=== PATIENT | female | born 1985 | race Caucasian/White ===

== ENCOUNTER 2019-07-21 06:37 | Inpatient (IN) | payer OTHER ==
[~2019-07-21] VITALS: Ht 154.9 cm; Wt 81.4 kg
[2019-07-23] VITALS (46 sets, daily range): BP systolic 108–152; BP diastolic 57–110; PULSE 67–115; TEMP 98–98.7
--- NOTE | 2019-07-23 07:15 | NUR ---
Patient ambulatory to [facility]5 with spouse, changed into gown, FHR/TOCO monitors placed. Patient denies any regular contractions, leaking of fluid, vaginal bleeding, decreased movement. Plan of care discussed. 0740: IV started in right hand, blood obtained and to lab, LR infusing. Assessment completed/consents gone over and signed/ packet given. Dr. Fay called and orders to start pitocin. 0800: Pitocin induction discussed and patient agrees to plan, pitocin started per protocol at 2mU. 0815: Dr. Fay at bedside and plan of care discussed. SONO done at this time and vertex position confirmed.
[2019-07-23] MEDS ORDERED: PRENATAL TABLET PO (07:43)
[2019-07-23 08:40] LABS: BASO % 0.3 % (0.0-2.0); EOS # 0.1 (0.0-0.7); EOS % 0.7 % (0-4.0); GRAN # 5.7 (1.4-6.5); GRAN % 74.6 % (42.2-75.2); HEMOGLOBIN 13.1 g/dl (12.5-16.0); LYMPH # 1.4 (1.2-3.4); LYMPH % 17.8 % (20.0-51.0); MEAN CELL VOLUME 90 fl (80.0-100.0); MEAN CORPUSCULAR HEMOGLOBIN 30 pg (27.0-31.0); MEAN CORPUSCULAR HGB CONC 34 g/dl (33.0-37.0); MEAN PLATELET VOLUME 10.5 fl (7.4-10.4); MONO # 0.4 (0.1-0.6); MONO % 5.8 % (1.7-9.3); PLATELET COUNT 210 K/mm3 (130-400); RED BLOOD COUNT 4.32 M/mm3 (4.10-5.30); REDCELL DISTRIBUTION WIDTH-CV 13.6 % (11.5-14.5)
--- NOTE | 2019-07-23 10:54 | NUR ---
Patient sitting forward and FHR tracing maternal heart rate due to maternal position. 1115: FHR tracing intermittent varianle decelerations.
--- NOTE | 2019-07-23 12:00 | NUR ---
FHR monitor intermittently tracing maternal heart rate and monitor adjusted. 1410: Patient off monitor to void. 1453: FHR tracing maternal heart rate and monitor adjusted. 1526: FHR tracing maternal heart rate due to patient sitting forward. 1610: Patient more uncomfortable and requesting epidural. SVE-/-2 Luciano HILARIO notified. 1630: FHR baseline 145-150bpm and recurrent late decelerations decreasing to 90-120bpm and returning to baseline. Patient turned left lateral. 1640: Patient off monitor to void. Dr. Fay at bedside and assessing patient and FHR monitor and orders to turn pitocin down to 10mU. 1643: Pitocin turned down to 10mU. Physician orders to turn pitocin off. 1652: Pitocin off and patient sitting up for epidural and Abhay Allen CRNA at bedside. Difficulty tracing FHR due to maternal position. 1710: Patient more comfortable with epidural and Dr. Fay at bedside. SVE-/2 1725: FHR tracing recurrent late/varible deceleration. Dr. Fay at bedside. Oxygen on patient via mask at 10ml/hr. Plan of care discussed SVE per physician /2 and IUPC placed at this time and patient tolerates well. Patient right lateral. 1745: Osorio catheter placed and patient tolerates well. SVE--//-2. Patient left lateral with right leg resting in stirrup. 1750: FHR baseline 155bpm and subtle late decelerations noted. at nurses station and orders to turn pitocon on at 2mU. Pitocin turned on at this time 1758: IUPC removed due to not recording correctly. 1815: Report given to Randell Russo
--- NOTE | 2019-07-23 20:16 | NUR ---
185 DR MAE DID SVE PT IS COMPLETE, GOING TO START PUSHING, 185 RICH CATHETER REMOVED WITH 100 ML OF URINE IN IT. 1899 DR MAE AT BEDSIDE TO PUSH, VO RECIEVED TO INCREASE THE PITOCIN DRIP TO 4MU/HR. 190 OF FEMALE INFANT OVER INTACT COY AREA, APGARS 8-9-9, SPONTANOUS DELIVERY OF PLACENTA, PITOCIN INFUSING AT 350ML/HR FF.
[2019-07-24 08:25] LABS: HEMOGLOBIN 11.5 g/dl (12.5-16.0)
[2019-07-24 08:30] LABS: HEMATOCRIT 33.6 % (37.0-47.0)
[2019-07-24 09:15] VITALS: BP 128/76; PULSE 88; TEMP 98
--- NOTE | 2019-07-24 10:30 | NUR ---
Visited and provided spiritual care.
[2019-07-24 16:48] VITALS: BP 127/82; PULSE 87; TEMP 97.4
[2019-07-24 20:00] VITALS: BP 131/73; PULSE 75; TEMP 98.3
[2019-07-25 08:15] VITALS: BP 111/81; PULSE 75; TEMP 98.7
[2019-07-25] MEDS ORDERED: IBU600 MG PO (09:09)
== END 2019-07-25 13:05 | disposition home or self-care (01) | DRG 807 ==
LOC: LDR 07-23 06:37 → OB 07-23 22:15
PROVIDERS: ADMIT Obstetrics & Gynecology
PROC: 10E0XZZ Delivery of Products of Conception, External Approach (ICD-10-PCS; principal; 2019-07-23)
PROC: 10907ZC Drainage of Amniotic Fluid, Therapeutic from Products of Conception, Via Natural or Artificial Opening (ICD-10-PCS; 2019-07-23)
PROC: 3E033VJ Introduction of Other Hormone into Peripheral Vein, Percutaneous Approach (ICD-10-PCS; 2019-07-23)
DX: O32.0XX0 Maternal care for unstable lie, not applicable or unspecified (principal); Z37.0 Single live birth; O36.8330 Maternal care for abnormalities of the fetal heart rate or rhythm, third trimester, not applicable or unspecified; O77.0 Labor and delivery complicated by meconium in amniotic fluid; Z3A.39 39 weeks gestation of pregnancy
CPT/HCPCS: J2590; J2795; J7120